=== PATIENT | male | born 1955 | race Caucasian/White ===

== ENCOUNTER → 2023-08-16 18:02 | Outpatient (REF) | payer MEDICARE, OTHER, SELFPAY | LOC: PAVMRI 18:02 | PROVIDERS: ATTENDING PHYSICIAN Orthopaedic Surgery; FAMILY PHYSICIAN Family Medicine | DX: M25.561 Pain in right knee (principal); M25.562 Pain in left knee | CPT/HCPCS: 73721 ==

== ENCOUNTER 2025-02-09 21:07 | Emergency (ER) | payer MEDICARE, OTHER, SELFPAY ==
[2025-02-09 21:25] VITALS: BP 127/75
[2025-02-09 21:56] VITALS: BMI 24.8
[2025-02-09] MEDS: KEFLEX 500 MG PO (22:25)
--- NOTE | 2025-02-09 22:26 | ED.GENMED ---
History of Present Illness
General
Chief Complaint: Skin Problem
Source: patient
Exam Limitations: none
Time Seen by Provider: 02/09/25 22:01
Nursing documentation reviewed up to this point in time: agreed with
History of Present Illness
History of Present Illness:
Note:
CHIEF COMPLAINT(S)
Suspected infection of a blister potentially secondary to poison dom exposure.
HISTORY OF PRESENT ILLNESS
The patient is a 69-year-old male who presented with concerns of a potentially infected blister. The patient had developed poison dom dermatitis on both arms and consulted with his , who noticed a linear streak extending from a large blister up
his arm approximately two hours before presentation. The patients was concerned due to her family history of sepsis, prompting immediate medical evaluation. The patient denies any fever or chills since the onset of symptoms.
The blister has reportedly increased in size and appears to weep fluid. The patients past experiences with poison dom were described as less severe, suggesting this blister may have led to a secondary bacterial infection. The patient was advised
about bacterial superinfection possibilities. He has not experienced significant itching and his assisted with bandaging the affected area.
PAST MEDICAL AND SURIGICAL HISTORY
The patient denies any significant past medical or surgical history.
REVIEW OF SYSTEMS
- Skin: Large blister on the arm with a linear streak noted two hours prior to presentation.
- Constitutional: Denies fever, chills, nausea, vomiting, or body aches.
PHYSICAL EXAM
General: Alert, no acute distress.
Skin: Presence of a large blister on the arm with noted streaking; warm and dry otherwise.
Cardiovascular: No edema.
Respiratory: Respirations are non-labored.
PLAN
1. Monitor the blister closely for signs of worsening infection such as fever, increased redness, or further streaking.
2. Symptomatic relief with the administration of a single dose of a corticosteroid to reduce inflammation and assist in fluid retention management.
3. [id number] measures recommended for itch relief if necessary.
4. Return to the emergency department if symptoms worsen or do not improve, with particular attention to fever, chills, or any new symptoms.
DIFFERENTIAL DIAGNOSIS
The Differential Diagnosis includes, in no particular order and is not limited to:
1. Bacterial cellulitis
2. Allergic contact dermatitis
3. Dermatitis herpetiformis
4. Bullous pemphigoid
5. Erysipelas
6. Herpes zoster
7. Fixed drug eruption
8. Vasculitis
9. Herpetic malka
10. Staphylococcal scalded skin syndrome
Disposition:
SUMMARY OF ENCOUNTER
The patient, a 69-year-old male, was seen in the emergency department for concerns regarding poison dom dermatitis on both upper extremities. He presented with blistering on the left arm and noted streaking. A physical exam also revealed an axillary
lymph node, potentially indicative of a secondary bacterial infection. Considering these findings, the patient was prescribed cefalexin (Keflex) to address the possibility of bacterial superinfection. A corticosteroid was considered for symptomatic
relief, but the patient reported no significant symptoms typically associated with poison dom at the time.
DISPOSITION
Discharge.
PLAN
The plan includes monitoring the blister closely for any signs of worsening infection and starting cefalexin 500 mg orally twice daily to treat a suspected bacterial infection secondary to the blister. The patient is to watch for increased redness,
fever, or further streaking and to seek medical attention if any symptoms worsen or do not improve.
PATIENT EDUCATION AND COUNSELING
The patient was informed about the signs of infection to monitor, including fever, increased redness, and streaking. Education was provided on the importance of following up with medical attention should these occur or if the symptoms do not improve.
FOLLOW-UP INSTRUCTIONS
The patient is advised to return to the emergency department if symptoms worsen or if new symptoms such as fever or chills arise.
MEDICATION RECONCILIATION
1. Cefalexin 500 mg orally twice daily.
MEDICAL DECISION MAKING
1. Number and Complexity of Problems Addressed: Differential diagnosis includes bacterial cellulitis, allergic contact dermatitis, dermatitis herpetiformis, bullous pemphigoid, erysipelas, herpes zoster, fixed drug eruption, vasculitis, herpetic
malka, and staphylococcal scalded skin syndrome.
2. Data:
Category 1: No lab or imaging tests were ordered during this visit.
Category 2: Clinical decisions were informed by the patients presentation and their wifes observations regarding symptom progression.
-Risk: Prescription medication was prescribed, specifically cefalexin, to address potential bacterial infection.
DIAGNOSIS
1. Poison dom dermatitis, uncomplicated (ICD-10: L23.7)
2. Bacterial infection of skin and subcutaneous tissue, unspecified (ICD-10: L08.9)
Past History
Past History
ED Past Medical History: None
ED Past Surgical History: Other (Hernia repair 2011, deviated septum repair.)
Social History
Tobacco: Non-smoker
Living: with family
Employment: Employed (Works as a financial service rep)
Phy Exam
Physical Exam
Physical Exam:
.
Course
Orders/Labs/Results
Orders:
Orders
02/09/25 22:21
Cephalexin Monohydrate [Keflex] 500 mg PO NOW STA
Vital Signs
Initial and Last Documented VS:
Initial Vital Signs
Pulse Resp BP Pulse Ox
69 20 127/75 98
02/09/25 21:25 02/09/25 21:25 02/09/25 21:25 02/09/25 21:25
Last Documented Vital Signs
Pulse Resp BP Pulse Ox
69 20 127/75 98
02/09/25 21:25 02/09/25 21:25 02/09/25 21:25 02/09/25 22:28
*Pulse Oximetry
SaO2: 98
Oxygen Mode of Delivery: Room air
Patient hypoxic: no
*Critical Care Note
Total Time (30-74mins, 75-104mins- exclusive of procedures): Not Applicable
ED Attending Note
-
Portions of this chart may have been created with voice recognition software.� Occasional wrong word or��sound alike� substitutions may have occurred due to the inherent limitations of voice recognition software.
Discharge Plan
Departure
Patient Disposition: Home (Routine Discharge)
Date of Disposition: 02/09/25
Time of Disposition: 22:27
Patient with high blood pressure during this ER visit?: No
Condition: Fair
Discharge Problem:
Poison dom dermatitis, Cellulitis
Instructions: Wound Care (DC), Cellulitis (Skin Infection), Adult (DC), Cellulitis (skin infection) in adults (DC), BLOOD PRESSURE
Prescriptions:
New
cephalexin 500 mg capsule
500 mg PO Q6H 10 Days Qty: 40 0RF
mupirocin 2 % ointment
1 applic topical BID Qty: 22 0RF
Rx Instructions:
Apply to Affected area 2x/day
No Action
pediatric multivitamin no.17 [Animal Shapes] 1 EACH tablet,chewable
1 ea PO DAILY
Vitamin C
1 tab PO DAILY
azithromycin 250 MG tablet
250 mg PO DAILY
cholecalciferol (vitamin D3) 2,000 UNIT tablet
2,000 unit PO DAILY
clindamycin HCl 300 MG capsule
600 mg PO TID 7 Days 0RF
diclofenac sodium 75 MG tablet,delayed release (DR/EC)
75 mg PO BID Qty: 10 0RF
Activity Restrictions/Additional Instructions:
Your prescriptions was sent to the pharmacy you specified
Thank You for choosing [facility].
It was a pleasure meeting you and taking part in your care. We hope for your continued healing and wellness.
Please read discharge instructions in their entirety. However, they are for general education and may not describe your exact diagnosis at discharge. Information on your ER visit and medical conditions were discussed with you along with appropriate
follow up information...
If indicated, please take your medications as instructed and indicated on discharge paperwork.
Please schedule a follow up appointment as directed. Call to schedule an appointment
Please return to the emergency department with ANY change in, persisting, or worsening of symptoms. If any of your symptoms do not improve, or persist, or become more severe within 6-12 hours, please return to the emergency department for further
care.
Please return to the emergency department if you develop a headache, neck pain/stiffness, fever greater than 100.4F, chest pain, shortness of breath, persistent nausea, vomiting, slurred speech, difficulty walking, numbness/tingling, weakness, signs
of infection or any other symptoms that are worrisome to you.
If you have any questions or concerns please do not hesitate to call the Hospital at or E-mail me directly at [email or web address]
Interventions
Interventions:
*Risk Screen - Suicide Last Done: 02/09/25 21:25
*General Assessment Last Done: 02/09/25 21:25
*Neglect/Abuse Screening Last Done: 02/09/25 21:25
*ED- Fall Risk Assessment Last Done: 02/09/25 21:25
*ED COVID-19 Vaccine History Last Done: 02/09/25 21:25
*Nursing Disposition Last Done: 02/09/25 22:49
ED-Skin Assessment Last Done: 02/09/25 21:54
Discharge Date and Time
Discharge Date/Time: 02/09/25 22:51
Print Language: ARABIC
--- NOTE | 2025-02-09 22:49 | EDRN ---
Discharge instructions reviewed and antibiotic time/instructions given. no further questions at this time
== END 2025-02-09 22:51 | disposition home or self-care (01) ==
LOC: EMR 21:07
PROVIDERS: EMERGENCY PHYSICIAN Student in an Organized Health Care Education/Training Program; FAMILY PHYSICIAN Family Medicine
DX: L23.7 Allergic contact dermatitis due to plants, except food (principal); L03.114 Cellulitis of left upper limb
CPT/HCPCS: 99283

== ENCOUNTER → 2025-03-04 07:06 | Outpatient (REF) | payer MEDICARE, OTHER, SELFPAY | LOC: HWRCS 07:06 | PROVIDERS: ATTENDING PHYSICIAN Internal Medicine; FAMILY PHYSICIAN Family Medicine | DX: R93.1 Abnormal findings on diagnostic imaging of heart and coronary circulation (principal); I35.9 Nonrheumatic aortic valve disorder, unspecified | CPT/HCPCS: 93306 ==

== ENCOUNTER → 2025-03-10 07:51 | Outpatient (REF) | payer MEDICARE, OTHER, SELFPAY | LOC: HWRAD 07:51 | PROVIDERS: ATTENDING PHYSICIAN Internal Medicine; FAMILY PHYSICIAN Family Medicine | DX: R93.1 Abnormal findings on diagnostic imaging of heart and coronary circulation (principal) | CPT/HCPCS: 75571 ==